=== PATIENT | female | born 1970 | race Caucasian/White ===

== ENCOUNTER 2016-07-02 05:27 | Inpatient (IN) | payer OTHER ==
[2016-06-28 14:49] VITALS: BMI 32.0
--- NOTE | 2016-06-28 15:23 | PAT Medication Instructions ---
Service Date Jun 28, 2016. Current Home Medication List Acetaminophen Tab (Tylenol), 975 MG PO PRN Calcium Citrate-Vitamin D (Citracal/Vitamin D), 1 TAB PO HS Cholecalciferol (Vitamin D3), 4,000 UNITS PO HS Pediatric Multiple Vitamin W/ (Flintstones Chewable), 4 TAB PO HS [Vitamin B12], 1 DOSE INJ [id number] Medication Instructions For Your Scheduled Surgery Vitamin B12 1 DOSE INJ [id number] (continue as usual) - Take the following medications the morning of surgery with a sip of water: Acetaminophen Tab (Tylenol), 975 MG PO PRN (if needed) - Take the following medications as scheduled the night before surgery: Cholecalciferol (Vitamin D3), 4,000 UNITS PO HS Pediatric Multiple Vitamin W/ (Flintstones Chewable), 4 TAB PO HS Calcium Citrate-Vitamin D (Citracal/Vitamin D), 1 TAB PO HS Acetaminophen Tab (Tylenol), 975 MG PO PRN If you have any questions please call us at [phone] or [phone] ( Mary) or [phone]
[2016-06-28 16:38] LABS: BASO % 0.4 %; BASO ABS # 0.02 K/uL (0-0.2); COMPLETE YES; EOS % 1.7 %; HEMATOCRIT 34.3 % (37-47); LYMPH % 27.9 %; LYMPH ABS # 1.31 K/uL (1.2-3.4); MEAN CELL VOLUME 85.3 fL (80-100); MEAN CORPUSCULAR HEMOGLOBIN 28.9 pg (25-34); MEAN CORPUSCULAR HGB CONC 33.8 g/dl (32-36); MEAN PLATELET VOLUME 10.8 fL (7.4-10.4); MONO % 5.8 %; NEUT % 64.2 %; PLATELET COUNT 162 K/uL (130-400); RED BLOOD COUNT 4.02 M/uL (4.2-5.4); WHITE BLOOD COUNT 4.69 K/uL (4.8-10.8)
[2016-06-28 16:54] LABS: BUN/CREATININE RATIO 20.8 (10-20); CALCIUM 8.9 mg/dl (8.5-10.1); CREATININE 0.78 mg/dl (0.60-1.20); POTASSIUM 4.4 mmol/L (3.5-5.1)
[2016-06-28 17:03] LABS: T3 TOTAL 0.82 ng/ml (0.60-1.81)
[~2016-07-02] VITALS: Ht 172.7 cm; Wt 94.1 kg
[2016-07-02] VITALS (9 sets, daily range): BP systolic 111–145; BP diastolic 56–85; PULSE 60–86; TEMP 36.2–37.4; O2SAT 96–100; Ht 172.7 cm; Wt 94.1 kg
[~2016-07-02 05:27] MED LIST: ACET325T96 PO; CALC-338 PO; CHOL1CAP57 PO; PEDICHW50 PO; VITAMIN B12 INJ
[2016-07-02] MEDS ORDERED: GENTAMICIN INJ 140 MG in DEXTROSE 5% 100ML 100 ML IV SCH (06:00)
[2016-07-02] MEDS ORDERED: CLINDAMYCIN 600 MG/54 ML D5W 50 ML IV SCH (06:00)
[2016-07-02] MEDS ORDERED: LACTATED RINGER'S 1000ML 1,000 ML IV SCH ×2 (06:00)
[2016-07-02] MEDS ORDERED: DEXAMETHASONE SOD INJ 4 MG/ML VIAL ONE (07:04)
[2016-07-02] MEDS ORDERED: PROPOFOL IV EMULSION 10 MG/ML 20 ML VIAL IV ONE (07:04)
[2016-07-02] MEDS ORDERED: GLYCOPYRROLATE INJ 0.2 MG/ML VIAL ONE (07:04)
[2016-07-02] MEDS ORDERED: ONDANSETRON INJ 2 MG/ML 2 ML VIAL ONE ×2 (07:04→10:07)
[2016-07-02] MEDS ORDERED: ROCURONIUM BROMIDE 10 MG/ML 5 ML VIAL ONE (07:04)
[2016-07-02] MEDS ORDERED: NEOSTIGMINE METHYLSULFATE 5 MG/5 ML SYR ONE (07:04)
[2016-07-02] MEDS ORDERED: LIDOCAINE HCL 2% 2 ML VIAL (20MG/ML) ONE (07:04)
[2016-07-02] MEDS ORDERED: FENTANYL CITRATE INJ 50 MCG/1 ML 2 ML VIAL ONE ×3 (07:04→09:19)
[2016-07-02] MEDS ORDERED: MIDAZOLAM HCL 1 MG/ML 2ML VIAL ONE (07:04)
[2016-07-02] MEDS ORDERED: BUPIVACAINE/EPINEPHRINE 0.5% MPF 1:200,000 30 ML VIAL ONE (07:07)
--- NOTE | 2016-07-02 07:13 | History & Physical Bridge Note ---
H&P Re-Evaluation Bridge Note: I have examined the patient, reviewed the History & Physical and in the interval since the performance of the History & Physical I have noted the following changes of clinical significance: No changes noted
[2016-07-02] MEDS ORDERED: EpHEDrine SULFATE INJ 50 MG/ML AMP IV PRN (08:30)
[2016-07-02] MEDS ORDERED: ONDANSETRON INJ 2 MG/ML 2 ML VIAL IV PRN ×2 (08:30→09:45)
[2016-07-02] MEDS ORDERED: ATROPINE SULFATE 0.1 MG/ML 5ML SYR IV PRN (08:30)
[2016-07-02] MEDS ORDERED: FENTANYL CITRATE INJ 50 MCG/1 ML 2 ML VIAL IV PRN (08:30)
[2016-07-02] MEDS ORDERED: PREMARIN VAG CRM 14 APPLN/30 GM TUBE ONE (09:22)
[2016-07-02] MEDS ORDERED: BACITRACIN OINT 15 GM TUBE ONE (09:26)
--- NOTE | 2016-07-02 09:39 | [facility] Post Operative Brief Note ---
Immediate Operative Summary Operative Date Jul 02, 2016. Pre-Operative Diagnosis Menorrhagia with regular cycle, ANEMIA Post-Operative Diagnosis Same as preoperative diagnosis Procedure(s) Performed Exam Under Anesthesia; Transvaginal Hysterectomy; Bilateral Salpingectomy, Saxena Cudleplasty; Cystoscopy Surgeon Dr. Ovidio Knox Communications Manager Surgeon(s) Dr. 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
[2016-07-02] MEDS ORDERED: ACETAMINOPHEN IV 100 ML IV PRN (09:45)
[2016-07-02] MEDS ORDERED: SENNA 8.6 MG TAB PO PRN (09:45)
[2016-07-02] MEDS ORDERED: BISACODYL 10 MG SUPP PR PRN (09:45)
[2016-07-02] MEDS ORDERED: MEPERIDINE HCL 50 MG/ML CARP IV PRN (09:45)
[2016-07-02] MEDS ORDERED: PROMETHAZINE HCL INJ 25 MG in SODIUM CHLORIDE 0.9% 50ML 50 ML IV PRN (09:45)
[2016-07-02] MEDS ORDERED: MAGNESIUM HYDROXIDE SUSP 30 ML UDC PO PRN (09:45)
--- NOTE | 2016-07-02 10:27 | OPERATIVE REPORT ---
DATE OF OPERATION: 07/02/2016 PREOPERATIVE DIAGNOSIS: The patient is a 46-year-old G9,P9-0-0-9 female with heavy menstrual periods and anemia not responding to medical therapy and progestin IUD. POSTOPERATIVE DIAGNOSIS: Same. PROCEDURE: Examination under anesthesia, transvaginal hysterectomy, bilateral salpingectomy, Saxena culdoplasty, cystoscopy. SURGEON: Dr. Givens. COMMUNITY HEALTH DIRECTOR: Dr. Brown. ESTIMATED BLOOD LOSS: 200mL. FLUIDS: 1800 mL of lactated Ringer's. DRAINS: Urine 150 mL of urine in the Merrill catheter. ANESTHESIA: General endotracheal. COMPLICATIONS: None. FINDINGS: Examination under anesthesia revealed anteverted 6 weeks' size uterus, nonpalpable adnexa. Intraoperative findings normal uterus, fallopian tubes and ovaries. OPERATION AND FINDINGS: PROCEDURE: The patient was taken to the operating room where general anesthesia was given without difficulty. She was placed in dorsal lithotomy position with candy cane stirrups. She was prepared and draped in usual sterile fashion. Examination under anesthesia was done with the above findings and a Merrill catheter was inserted into the bladder. Then a weighted speculum was placed in the patient's vagina and the bladder was retracted with the Meeks valve and cervix was visualized, grasped with single tooth tenaculum. The vaginal and cervical prep was repeated again with Betadine. The cervix was injected 0.5% Marcaine with epinephrine circumferentially hydrodissecting the vaginal mucosa around the cervix, about 15 mL was used. Then the vagina mucosa was incised circumferentially around the cervix with the tip of Bovie and the incision was extended with the tip of Goel scissors. The vaginal mucosa was dissected off bluntly with the tip of finger with sponge on it circumferentially around the cervix. Then the posterior cul-de-sac was identified, grasped with pickups, entered sharply with Metzenbaum scissors and the posterior cul-de-sac was confirmed to be entered with the fingers and then a long weighted speculum was placed in the posterior cul-de-sac. Then the vaginal mucosa was dissected off more bluntly from the anterior and lateral cervical sides. Then sacrouterine ligaments were identified on both sides, grasped with Alcon clamps, cut and suture-ligated with 0 Vicryl and those were tagged with hemostat. Then the cardinal ligaments were identified, grasped with Alcon clamps, cut and suture-ligated with 0 Vicryl on both sides. Excellent hemostasis was achieved. Then anterior vaginal wall was pushed back more bluntly with the fingers. Anterior cul-de-sac/ vesicouterine peritoneum was identified, grasped with pickups and entered sharply with Metzenbaum scissors. The entrance to anterior cul de sac was confirmed digitally feeling the anterior serosa of uterus. Bladder was retracted off from the field with long retractor. The uterine arteries were coagulated with handheld LigaSure on both sides x3 and cut. The upper branches of the uterine arteries were also coagulated with the handheld LigaSure device x3 and then cut. Excellent hemostasis was achieved. The broad ligament leaves were coagulated and cut with the handheld LigaSure device and then we came up to the uterine cornua where fallopian tubes were identified and grasped with Shruthi clamps. The uteroovarian ligament, round ligament were coagulated and cut with LigaSure device on both sides. Then the fallopian tubes were visualized and held with Babcoc clamps. They were excised from mesosalpinx with Ligasure device. Ovaries were visualized to be normal. All the specimens were put in cups and sent for pathology. Then the surgical area was inspected to be hemostatic. The bowels were pushed back with the sponge stick and the vagina mucosa was held on both sides and then Mc Call suture was placed in the posterior vaginal wall entered into the cul-de-sac and the suture was continued on the left side of the cul-de-sac up to the left sacral uterine ligament and came back followed to the cul-de-sac up to the right sacrouterine ligament and came back to the middle of the cul-de-sac and then came out from the posterior vaginal wall next to the entrance. It was held with hemostats. Then the sacrouterine ligaments which were held before were tied in the middle and the vaginal mucosa was closed with 0 Vicryl in a running locked fashion. Excellent hemostasis was achieved. At the end of the procedure the Mac Call suture was tied up in the vagina bringing the vaginal mucosa up into the pelvis and it was cut. Instruments were removed from the patient's vagina and Merrill catheter was removed. Cystoscopy was done. Bladder mucosa was inspected to be normal. No lacerations were seen. Both ureters right and left were visualized and were ejecting urine. Then the bladder was drained. Cystoscopy was ended. A sterile Merrill catheter was placed into the bladder. Instruments were removed from the patient's bladder. The vagina was packed with bacitracin soaked vaginal packing and the procedure was ended. The patient was taken out from lithotomy position, cleaned and dried and she tolerated the procedure well. Sponge, lap, needle and instrument count was correct x3. She was given IV clindamycin and gentamicin before surgery. She was taken to recovery room in stable condition. No complications happened. I was and Dr. Brown was present during whole procedure. I attest to the content of the Intraoperative Record and any orders documented therein. Any exceptions are noted below. PRINCE
[2016-07-02] MEDS ORDERED: MEPERIDINE HCL 25 MG/ML CARP IV PRN (10:30)
[2016-07-02] MEDS ORDERED: MEPERIDINE HCL 25 MG/ML CARP ONE (10:34)
--- NOTE | 2016-07-02 11:11 | Anesthesiology Progress Note ---
Anesthesia Post Op Note Date & Time Jul 02, 2016 at 11:11 Vital Signs Pain Intensity: 0 Vital Signs Past 12 Hours Date Time Temp Pulse Resp B/P Pulse Ox O2 Delivery O2 Flow Rate FiO2 07/02/16 11:05 36.3 57 18 114/61 98 Nasal Cannula 2 07/02/16 10:55 36.3 58 19 115/68 97 Nasal Cannula 2 07/02/16 10:45 57 19 112/63 96 Nasal Cannula 2 07/02/16 10:35 63 15 112/69 99 Nasal Cannula 2 07/02/16 10:25 60 16 121/59 99 Nasal Cannula 2 07/02/16 10:15 58 18 113/64 100 Nasal Cannula 2 07/02/16 10:05 56 18 128/63 100 Mask 10 07/02/16 09:55 68 8 119/63 100 Mask 10 07/02/16 09:45 36.2 81 12 120/60 100 Mask 10 07/02/16 06:14 36.7 60 18 119/56 98 Room Air Notes Mental Status: alert / awake / arousable, participated in evaluation Pt Amnestic to Procedure: Yes Nausea / Vomiting: adequately controlled Pain: adequately controlled Airway Patency, RR, SpO2: stable & adequate BP & HR: stable & adequate Hydration State: stable & adequate Anesthetic Complications: no major complications apparent
[2016-07-02] MEDS: MEPERIDINE HCL 50 MG/ML CARP IV PRN (12:12)
[2016-07-02] MEDS: KETOROLAC TROMETHAMINE 15 MG/ML VIAL IV PRN (18:13)
--- NOTE | 2016-07-02 18:26 | OB/GYN Progress Note ---
FUNDER Progress Note Date of Service: Jul 02, 2016. Postop check Patient is seen and examined Feels well, no complaints Pain is under control with meds No CP/ SOB/ Dizziness/ N&V/ VB/ Leg pain Not OOB yet Tolerating clears Explained about the surgery and findings Date Time Temp Pulse Resp B/P Pulse Ox O2 Delivery O2 Flow Rate FiO2 07/02/16 16:30 37.0 64 18 111/68 97 Room Air 07/02/16 16:30 97 Room Air 07/02/16 14:15 36.8 68 16 141/82 97 Room Air 07/02/16 13:15 36.7 64 16 137/81 96 Room Air 07/02/16 12:15 36.6 76 16 145/85 96 Room Air 07/02/16 11:45 36.4 62 16 130/81 96 Room Air 07/02/16 11:15 100 Nasal Cannula 2.0 07/02/16 11:15 36.2 62 16 131/79 99 Room Air 2.0 07/02/16 11:05 36.3 57 18 114/61 98 Nasal Cannula 2 07/02/16 10:55 36.3 58 19 115/68 97 Nasal Cannula 2 07/02/16 10:45 57 19 112/63 96 Nasal Cannula 2 07/02/16 10:35 63 15 112/69 99 Nasal Cannula 2 07/02/16 10:25 60 16 121/59 99 Nasal Cannula 2 07/02/16 10:15 58 18 113/64 100 Nasal Cannula 2 07/02/16 10:05 56 18 128/63 100 Mask 10 07/02/16 09:55 68 8 119/63 100 Mask 10 07/02/16 09:45 36.2 81 12 120/60 100 Mask 10 07/02/16 06:14 36.7 60 18 119/56 98 Room Air Last 24 Hours Test 07/02/16 00:00 Bedside Urine Test NEG OUP: 200 ml in 2.5 hours 100 ml in bag PE: General: Alert, orientedx3, NAD CVS: S1S2 RRR Lungs: CTAB Abd: soft, NT, ND, BS+, No VB Ext: NT, no edema, SCD's on AP: 46 yo female s/p EUA, TVH, Bilateral salpingectomy, Cystoscopy, pod#0 VSS Afebrile doing well Continue to routine postop care Encourage PO intake, may ambulate/ dangle legs D/C prasad and vag packing in am Anticipate DC tomorrow
--- NOTE | 2016-07-02 18:30 | Discharge Instructions ---
Discharge Instructions Admission Reason for Admission: Heavy Periods, Anemia Discharge Discharge Diagnosis / Problem: Transvaginal hysterectomy, bilateral salpingectomy, cystoscopy Discharge Goals Goal(s): Routine recovery after surgery Activity Recommendations Activity Limitations: as noted below Lifting Limitations: no more than 10 pounds Exercise/Sports Limitations: until after follow-up appointment May Resume Sexual Activity: after follow-up appointment (for 8 weeks) Shower/Bathe: may shower/bathe in 3 days (shower only) Driving or Machine Use: ACTIVITY RECOMMENDATIONS: Normal activity the day after surgery with the following exceptions: * No heavy lifting greater than 10 pounds until cleared by physician. * No tampons, douches or intercourse until cleared by physician. * You may drive when you feel capable and have no pain. * You may shower. * You may climb stairs without restrictions. SPECIAL CARE INSTRUCTIONS: The incisions, both vaginal will heal on their own. You may have vaginal discharge (DO NOT BE ALARMED BY THIS). Heavy vaginal bleeding (changing a pad every hour) is never normal. Contact the office if this occurs. No bandages are required. If no improvement in pain, please contact office. Call office at for: * Heavy bleeding -- more than normal period * Abdominal and/or pelvic pain * Temperature greater than 101.5 F * Persistent nausea and vomiting If you are sent home with a catheter, please call the office the day after surgery for follow-up with the physician. FOLLOW UP VISIT: 2 weeks but please call if you have nay concerns or problems. . Current Hospital Diet Patient's current hospital diet: Regular Diet Discharge Diet Recommended Diet: Regular Diet Procedures Procedures Performed: Exam Under Anesthesia; Transvaginal Hysterectomy; Bilateral Salpingectomy, Saxena Cudleplasty; Cystoscopy Pending Studies Studies pending at discharge: no Medical Emergencies . Who to Call and When: Medical Emergencies: If at any time you feel your situation is an emergency, please call 911 immediately. . Non-Emergent Contact Non-Emergency issues call your: Surgeon Call Non-Emergent contact if: temperature is above 100.5, your pain is not controlled, your pain is worsening, wound has increased drainage, wound has increased redness, wound has increased pain, you have any medication questions . . "Provider Documentation" section prepared by Ovidio Givens. VTE Core Measure Inpt VTE Proph given/why not?: Treatment not indicated [place] Drug Monitoring Program Search Results: no issues identified
[2016-07-02] MEDS: LACTATED RINGER'S 1000ML 1,000 ML IV SCH (20:09)
[2016-07-02 20:17] LABS: HEMATOCRIT 31.9 % (37-47)
[2016-07-03] MEDS: KETOROLAC TROMETHAMINE 15 MG/ML VIAL IV PRN (00:17)
[2016-07-03 03:10] VITALS: BP 106/72; PULSE 66; TEMP 36.6; O2SAT 96
[2016-07-03] MEDS: MEPERIDINE HCL 50 MG/ML CARP IV PRN (03:27)
[2016-07-03] MEDS: LACTATED RINGER'S 1000ML 1,000 ML IV SCH (03:46)
[2016-07-03 07:30] VITALS: BP 105/69; PULSE 73; TEMP 37; O2SAT 96
[2016-07-03 07:37] LABS: BASO % 0.3 %; BASO ABS # 0.02 K/uL (0-0.2); COMPLETE YES; EOS % 0.5 %; HEMATOCRIT 30.7 % (37-47); IG% 0.2 %; LYMPH % 18.5 %; LYMPH ABS # 1.08 K/uL (1.2-3.4); MEAN CELL VOLUME 86.2 fL (80-100); MEAN CORPUSCULAR HEMOGLOBIN 28.7 pg (25-34); MEAN CORPUSCULAR HGB CONC 33.2 g/dl (32-36); MEAN PLATELET VOLUME 10.3 fL (7.4-10.4); MONO % 7.4 %; NEUT % 73.1 %; PLATELET COUNT 131 K/uL (130-400); RED BLOOD COUNT 3.56 M/uL (4.2-5.4); WHITE BLOOD COUNT 5.83 K/uL (4.8-10.8)
--- NOTE | 2016-07-03 08:07 | OB/GYN Progress Note ---
ORE ROASTER Progress Note Date of Service: Jul 03, 2016. Patient is seen and examined. She feels well, no complaints other than mild pain in lower abdomen. Pain is under control with meds She had right leg/ upper thigh pain/ cramping. It felt better when she get up and move. No redness or swelling, she had SCD's all the time in the bed. Ambulating without dizziness Voiding without difficulty Tolerating crackers and liquids with out N&V Flatus + BM + Bleeding is minimal No fever/ chills/ CP/ SOB/ N&V/ Leg pain Date Time Temp Pulse Resp B/P Pulse Ox O2 Delivery O2 Flow Rate FiO2 07/03/16 03:10 36.6 66 16 106/72 96 Room Air 07/03/16 02:40 Room Air 07/02/16 23:45 96 Room Air 07/02/16 23:45 37.1 83 16 121/73 96 Room Air 07/02/16 20:15 37.4 86 18 111/66 96 Room Air 07/02/16 16:30 37.0 64 18 111/68 97 Room Air 07/02/16 16:30 97 Room Air 07/02/16 14:15 36.8 68 16 141/82 97 Room Air 07/02/16 13:15 36.7 64 16 137/81 96 Room Air 07/02/16 12:15 36.6 76 16 145/85 96 Room Air 07/02/16 11:45 36.4 62 16 130/81 96 Room Air 07/02/16 11:15 100 Nasal Cannula 2.0 07/02/16 11:15 36.2 62 16 131/79 99 Room Air 2.0 07/02/16 11:05 36.3 57 18 114/61 98 Nasal Cannula 2 07/02/16 10:55 36.3 58 19 115/68 97 Nasal Cannula 2 07/02/16 10:45 57 19 112/63 96 Nasal Cannula 2 07/02/16 10:35 63 15 112/69 99 Nasal Cannula 2 07/02/16 10:25 60 16 121/59 99 Nasal Cannula 2 07/02/16 10:15 58 18 113/64 100 Nasal Cannula 2 07/02/16 10:05 56 18 128/63 100 Mask 10 07/02/16 09:55 68 8 119/63 100 Mask 10 07/02/16 09:45 36.2 81 12 120/60 100 Mask 10 Last 24 Hours Test 07/02/16 20:00 07/03/16 07:19 Hemoglobin 10.6 g/dL 10.2 g/dL Hematocrit 31.9 % 30.7 % White Blood Count 5.83 K/uL Red Blood Count 3.56 M/uL Mean Corpuscular Volume 86.2 fL Mean Corpuscular Hemoglobin 28.7 pg Mean Corpuscular Hemoglobin Concent 33.2 g/dl Platelet Count 131 K/uL Mean Platelet Volume 10.3 fL Neutrophils (%) (Auto) 73.1 % Lymphocytes (%) (Auto) 18.5 % Monocytes (%) (Auto) 7.4 % Eosinophils (%) (Auto) 0.5 % Basophils (%) (Auto) 0.3 % Neutrophils # (Auto) 4.26 K/uL Lymphocytes # (Auto) 1.08 K/uL Monocytes # (Auto) 0.43 K/uL Eosinophils # (Auto) 0.03 K/uL Basophils # (Auto) 0.02 K/uL RDW Standard Deviation 44.4 fL RDW Coefficient of Variation 14.2 % Immature Granulocyte % (Auto) 0.2 % Immature Granulocyte # (Auto) 0.01 K/uL 8-Hour Column 07/02/16 07/02/16 07/03/16 15:59 23:59 07:59 Intake Total 2375 ml 1688 ml 1192 ml Output Total 615 ml 300 ml 250 ml Balance 1760 ml 1388 ml 942 ml 24-Hour Column 07/03/16 07:59 Intake Total 5255 ml Output Total 1165 ml Balance 4090 ml PE: General: Alert, orientedx3, NAD CVS: S1S2 RRR Lungs; CTAB Abd: soft, NT, fundus firm, below Umbilicus Incision: Clean, dry, intact Perineum intact, Lochia rubra minimal Ext; NT, no edema, no redness or cord felt, Sandro's sign neg/ neg AP: 46 yo s/p TVH, Bilateral salpingectomy, Cystoscopy , pod# 1 VSS Afebrile doing well Continue routine postop care Encourage ambulation, PO intake All questions were answered Anticipate D/C home today
[2016-07-03] MEDS ORDERED: OXYC-57 PO (08:09)
[2016-07-03] MEDS ORDERED: METO-157 PO (08:10)
[2016-07-03 08:12] LABS: BUN/CREATININE RATIO 18.5 (10-20); CREATININE 0.6 mg/dl (0.60-1.20); POTASSIUM 3.9 mmol/L (3.5-5.1)
[2016-07-03] MEDS: OXYCODONE/ACETAMINOPHEN 5-325 TAB PO PRN ×3 (08:26→16:30)
[2016-07-03 09:47] VITALS: BP 105/69; PULSE 73; TEMP 37; O2SAT 96
[2016-07-03 12:30] VITALS: BP 107/71; PULSE 80; TEMP 37; O2SAT 98
[2016-07-03 15:25] VITALS: BP 112/74; PULSE 56; TEMP 37.3
== END 2016-07-03 18:00 | disposition home or self-care (01) | DRG 743 ==
LOC: ENRESERVTM → ENRESERVDT → C.ACU 05:27 → C.MS4N 06:00
PROVIDERS: ADMIT Obstetrics & Gynecology; ATTEND Obstetrics & Gynecology
PROC: 0UT97ZZ Resection of Uterus, Via Natural or Artificial Opening (ICD-10-PCS; principal; 2016-07-02 07:15)
PROC: 0UTC7ZZ Resection of Cervix, Via Natural or Artificial Opening (ICD-10-PCS; principal; 2016-07-02 07:15)
PROC: 0UT77ZZ Resection of Bilateral Fallopian Tubes, Via Natural or Artificial Opening (ICD-10-PCS; principal; 2016-07-02 07:15)
PROC: 0UQF7ZZ Repair Cul-de-sac, Via Natural or Artificial Opening (ICD-10-PCS; principal; 2016-07-02 07:15)
DX: N92.0 Excessive and frequent menstruation with regular cycle (principal); D50.9 Iron deficiency anemia, unspecified; G47.33 Obstructive sleep apnea (adult) (pediatric); Z82.49 Family history of ischemic heart disease and other diseases of the circulatory system; Z83.3 Family history of diabetes mellitus; Z82.5 Family history of asthma and other chronic lower respiratory diseases; Z80.0 Family history of malignant neoplasm of digestive organs; Z82.3 Family history of stroke; Z83.49 Family history of other endocrine, nutritional and metabolic diseases; Z80.3 Family history of malignant neoplasm of breast; Z83.511 Family history of glaucoma